=== PATIENT | male | born 1985 | race Caucasian/White ===

== ENCOUNTER 2017-03-07 13:49 | Emergency (ER) | payer OTHER ==
[~2017-03-07] VITALS: Ht 180.3 cm; Wt 83.3 kg
[~2017-03-07 13:49] MED LIST: FLUO10CA48 PO; INSDGIPEN SC; LURA80TA PO; NVLGIPEN SQ; PANT40TA PO
[2017-03-07 13:54] VITALS: Ht 180.3 cm; Wt 83.3 kg
[2017-03-07 15:14] LABS: BASO % 0.1 %; BASO ABS # 0.01 K/uL (0-0.2); COMPLETE YES; EOS % 2.9 %; HEMATOCRIT 40.8 % (42-52); IG% 0.2 %; LYMPH % 27.9 %; LYMPH ABS # 2.33 K/uL (1.2-3.4); MEAN CELL VOLUME 84.1 fL (80-100); MEAN CORPUSCULAR HEMOGLOBIN 29.7 pg (25-34); MEAN CORPUSCULAR HGB CONC 35.3 g/dl (32-36); MEAN PLATELET VOLUME 10.8 fL (7.4-10.4); MONO % 7.3 %; NEUT % 61.6 %; PLATELET COUNT 217 K/uL (130-400); RED BLOOD COUNT 4.85 M/uL (4.7-6.1); WHITE BLOOD COUNT 8.36 K/uL (4.8-10.8)
--- NOTE | 2017-03-07 15:16 | EMERGENCY ROOM VISIT NOTE ---
History Report prepared by Rakesh: Dread Talavera Under the Supervision of: Dr. Telma Christopher M.D. First contact with patient: 14:12 Chief Complaint: MENTAL HEALTH EVALUATION Stated Complaint: MENTAL HEALTH EVAL. History of Present Illness The patient is a 31 year old male who presents to the Emergency Room with complaints of severe anxiety occurring for the past few days. The patient was released from half-way 4 days ago to [facility]. For the past few days, the [facility] staff noted the patient to be having some strange behavior. The patient reports that he has been having anxiety about his current situation. His plan after being released from the half-way was to find a job and a permanent place to live. Today, the [facility] staff counted the patient's pills due to worsening symptoms. He admits to taking extra Klonopin. The patient was asked to leave from the [facility] and was referred to the Emergency Room. He has to do 30 days of rehab successfully before he can be allowed to come back to the [facility]. He currently denies any suicidal or homicidal ideation. The patient has a history of ADD, bipolar disorder, and anxiety. He has a history of cocaine and alcohol abuse but has not used either since July 2015. He also has a history of diabetes and reports that his blood sugar has been high but it may be due to eating an unhealthy diet. The patient denies fevers, chills, or any other complaints. Source of History: patient Onset: a few days ago Position: other (global) Symptom Intensity: severe Quality: other (anxiety) Associated Symptoms: No fevers, No chills Review of Systems See HPI for pertinent positives & negatives. A total of 10 systems reviewed and were otherwise negative. Past Medical & Surgical Medical Problems: (1) Acute respiratory failure with hypoxia (2) Anxiety (3) Bipolar disorder (4) Hyperglycemia due to type 2 diabetes mellitus (5) Major depressive disorder, recurrent severe without psychotic features (6) Multiple drug overdose (7) Pancreatitis Family History Cancer Diabetes mellitus Heart disease Social History Smoking Status: Current Every Day Smoker Alcohol Use: occasionally Marital Status: single Occupation Status: employed Current/Historical Medications Scheduled Aripiprazole (Aripiprazole), 10 MG PO HS Bupropion (Wellbutrin Sr), 100 MG PO BID Clonazepam (Klonopin), 1 MG PO BID Insulin Aspart (Novolog), 10 UNITS SC TIDM Insulin Glargine (Lantus Solostar), 25 UNITS SC QPM Methylphenidate (Ritalin), 20 MG PO BID Oxcarbazepine (Oxcarbazepine), 300 MG PO BID Pantoprazole (Protonix), 40 MG PO DAILY Trazodone Hcl (Trazodone), 100 MG PO HS Allergies Coded Allergies: Amoxicillin (Verified Allergy, Unknown, UNKNOWN, 03/07/17) Penicillins (Verified Allergy, Unknown, ., 03/07/17) Ondansetron (Verified Adverse Reaction, Intermediate, severe headache, ) Physical Exam Vital Signs Date Time Temp Pulse Resp B/P (MAP) Pulse Ox O2 Delivery O2 Flow Rate FiO2 03/07/17 18:37 98 15 133/84 98 Room Air 03/07/17 16:05 91 16 119/75 100 Room Air 03/07/17 13:54 37.0 106 20 120/71 97 Room Air Physical Exam Vital signs reviewed. General: Well-appearing, in no significant distress. HEENT: No scleral icterus, PERRLA, neck supple. Atraumatic. Cardiovascular: Regular rate and rhythm, no extra sounds. Pulmonary: Clear to auscultation bilaterally, normal work of breathing. Abdomen: Soft, nontender, nondistended, positive bowel sounds. Musculoskeletal: Atraumatic, no peripheral edema. Neurologic: Patient awake alert and oriented x 3 Psychiatric: Patient denies suicidal or homicidal ideation. Skin: Warm, dry, no rash Medical Decision & Procedures Laboratory Results 03/07/17 15:00 Red Blood Count 4.85, Mean Corpuscular Volume 84.1, Mean Corpuscular Hemoglobin 29.7, Mean Corpuscular Hemoglobin Concent 35.3, Mean Platelet Volume 10.8, Neutrophils (%) (Auto) 61.6, Lymphocytes (%) (Auto) 27.9, Monocytes (%) (Auto) 7.3, Eosinophils (%) (Auto) 2.9, Basophils (%) (Auto) 0.1, Neutrophils # (Auto) 5.15, Lymphocytes # (Auto) 2.33, Monocytes # (Auto) 0.61, Eosinophils # (Auto) 0.24, Basophils # (Auto) 0.01 03/07/17 15:00 Test 03/07/17 15:00 03/07/17 15:20 03/07/17 20:28 White Blood Count 8.36 K/uL (4.8-10.8) Red Blood Count 4.85 M/uL (4.7-6.1) Hemoglobin 14.4 g/dL (14.0-18.0) Hematocrit 40.8 % (42-52) Mean Corpuscular Volume 84.1 fL (80-100) Mean Corpuscular Hemoglobin 29.7 pg (25-34) Mean Corpuscular Hemoglobin Concent 35.3 g/dl (32-36) Platelet Count 217 K/uL (130-400) Mean Platelet Volume 10.8 fL (7.4-10.4) Neutrophils (%) (Auto) 61.6 % Lymphocytes (%) (Auto) 27.9 % Monocytes (%) (Auto) 7.3 % Eosinophils (%) (Auto) 2.9 % Basophils (%) (Auto) 0.1 % Neutrophils # (Auto) 5.15 K/uL (1.4-6.5) Lymphocytes # (Auto) 2.33 K/uL (1.2-3.4) Monocytes # (Auto) 0.61 K/uL (0.11-0.59) Eosinophils # (Auto) 0.24 K/uL (0-0.5) Basophils # (Auto) 0.01 K/uL (0-0.2) RDW Standard Deviation 42.5 fL (36.4-46.3) RDW Coefficient of Variation 13.9 % (11.5-14.5) Immature Granulocyte % (Auto) 0.2 % Immature Granulocyte # (Auto) 0.02 K/uL (0.00-0.02) Anion Gap 4.0 mmol/L (3-11) Est Creatinine Clear Calc Drug Dose 114.0 ml/min Estimated GFR () 116.3 Estimated GFR (Non- 100.4 BUN/Creatinine Ratio 7.1 (10-20) Calcium Level 9.5 mg/dl (8.5-10.1) Total Bilirubin 0.4 mg/dl (0.2-1) Direct Bilirubin 0.1 mg/dl (0-0.2) Aspartate Amino Transf (AST/SGOT) 25 U/L (15-37) Alanine Aminotransferase (ALT/SGPT) 50 U/L (12-78) Alkaline Phosphatase 65 U/L (45-117) Total Protein 7.3 gm/dl (6.4-8.2) Albumin 3.5 gm/dl (3.4-5.0) Thyroid Stimulating Hormone (TSH) 0.887 uIu/ml (0.300-4.500) Salicylates Level < 1.7 mg/dl (2.8-20) Acetaminophen Level < 2 ug/ml (10-30) Ethyl Alcohol mg/dL < 3.0 mg/dl (0-3) Urine Color YELLOW Urine Appearance CLEAR (CLEAR) Urine pH 6.5 (4.5-7.5) Urine Specific [place] 1.017 (1.000-1.030) Urine Protein NEG (NEG) Urine Glucose (UA) 1+ (NEG) Urine Ketones NEG (NEG) Urine Occult Blood NEG (NEG) Urine Nitrite NEG (NEG) Urine Bilirubin NEG (NEG) Urine Urobilinogen NEG (NEG) Urine Leukocyte Esterase TRACE (NEG) Urine WBC (Auto) 1-5 /hpf (0-5) Urine RBC (Auto) 0-4 /hpf (0-4) Urine Hyaline Casts (Auto) 0 /lpf (0-5) Urine Epithelial Cells (Auto) 5-10 /lpf (0-5) Urine Bacteria (Auto) NEG (NEG) Urine Opiates Screen NEG (NEG) Urine Methadone, Qualitative NEG (NEG) Urine Barbiturates NEG (NEG) Urine Phencyclidine (PCP) Level NEG (NEG) Ur Amphetamine/Methamphetamine NEG (NEG) MDMA (Ecstasy) Screen POS (NEG) Urine Benzodiazepines Screen NEG (NEG) Urine Cocaine Metabolite NEG (NEG) Urine Marijuana (THC) NEG (NEG) Bedside Glucose 125 mg/dl (70-99) Laboratory results per my review. Medications Administered Medications (Trade) Dose Ordered Sig/Raudel Route Start Time Stop Time Status Last Admin Dose Admin Methylphenidate HCl (Ritalin Tab) 20 mg NOW STAT PO 03/07/17 16:15 03/07/17 16:32 DC 03/07/17 16:15 20 MG Pantoprazole Sodium (Protonix Tab) 40 mg NOW STAT PO 03/07/17 16:15 03/07/17 16:32 DC 03/07/17 16:39 40 MG Insulin Aspart (novoLOG ASPART) 10 units NOW STAT SC 03/07/17 17:02 03/07/17 17:04 DC 03/07/17 17:33 10 UNITS ED Course 1412: Past medical records reviewed. The patient was evaluated in room A05. A complete history and physical examination was performed. 1615: Protonix Tab 40 mg PO, Ritalin Tab 20 mg PO 1702: Insulin Aspart 10 units SC 2030: Upon reevaluation, the patient is resting comfortably. I discussed laboratory and radiographic results with him. He verbalized agreement of the treatment plan. The patient will be transferred to the [facility] for further management and care. Medical Decision Medication Reconciliation: I attest that I have personally reviewed the patient' s current medication list. Blood Pressure Screening: Patient was found to have normal blood pressure on screening and does not require follow-up. Differential diagnosis: Etiologies such as mood disorder, infection, hypoglycemia, electrolyte abnormalities, cardiac sources, intracerebral event, toxicologic, neurologic, as well as others were entertained. This patient was evaluated and appeared to be in no significant distress. Patient was medically cleared and evaluated by case management. He was given his home dose of Ritalin, Protonix and insulin. He was accepted at [facility] for inpatient D&A rehabilitation. Secure transportation arrangements have been made. Patient seems happy with the plan and agrees. Impression Primary Impression: Substance abuse Scribe Attestation The scribe's documentation has been prepared under my direction and personally reviewed by me in its entirety. I confirm that the note above accurately reflects all work, treatment, procedures, and medical decision making performed by me. Departure Information Dispostion [facility] Acute Care Referrals Bharathi Allen D.O. (PCP) Patient Instructions My [facility]
[2017-03-07 15:31] LABS: BUN/CREATININE RATIO 7.1 (10-20); CALCIUM 9.5 mg/dl (8.5-10.1); CREATININE 0.99 mg/dl (0.60-1.40); POTASSIUM 4.3 mmol/L (3.5-5.1)
[2017-03-07] MEDS ORDERED: ARIP1TAB15 PO (15:36)
[2017-03-07] MEDS ORDERED: INSDGIPEN SC (15:36)
[2017-03-07] MEDS ORDERED: BUPR100T8 PO (15:36)
[2017-03-07] MEDS ORDERED: CLON1TAB3 PO (15:36)
[2017-03-07] MEDS ORDERED: TRL300 PO (15:36)
[2017-03-07] MEDS ORDERED: TRAZ100T29 PO (15:36)
[2017-03-07] MEDS ORDERED: RTL20 PO (15:36)
[2017-03-07] MEDS ORDERED: NVLG SC (15:37)
[2017-03-07 15:42] LABS: ACETAMINOPHEN < 2 ug/ml (10-30); THYROID STIMULATING HORMONE 0.887 uIu/ml (0.300-4.500)
[2017-03-07 15:47] LABS: URINE APPEARANCE CLEAR (CLEAR); URINE BILIRUBIN NEG (NEG); URINE COLOR YELLOW; URINE NITRITE NEG (NEG); URINE PH 6.5 (4.5-7.5); URINE SPECIFIC GRAVITY 1.017 (1.000-1.030); UROBILINOGEN NEG (NEG); ZZUR CULT IF INDIC CLEAN CATCH NO
[2017-03-07 15:51] LABS: MANUAL MICROSCOPIC REQUIRED? NO; REVIEW REQ? NO
[2017-03-07] MEDS ORDERED: PANTOprazole SOD 40 MG TAB PO STA (16:15)
[2017-03-07] MEDS ORDERED: METHYLPHENIDATE HCL 10 MG TAB PO STA (16:15)
[2017-03-07 16:22] LABS: BENZODIAZEPINE, URINE NEG (NEG); COCAINE,URINE NEG (NEG); PHENCYCLIDINE, URINE NEG (NEG)
[2017-03-07] MEDS ORDERED: INSULIN ASPART 100 UNITS/ML 3 ML PEN SC STA (17:02)
[2017-03-07 21:18] VITALS: BP 128/78; PULSE 89; TEMP 36.8; O2SAT 97
[2017-03-13 23:06] LABS: SYNTHETIC CANNABINOIDS QL URIN NEGATIVE (Negative)
== END 2017-03-07 21:08 ==
LOC: C.EDB 13:50 → C.EDA 21:08
DX: F55.8 Abuse of other non-psychoactive substances (principal); J96.01 Acute respiratory failure with hypoxia; F41.9 Anxiety disorder, unspecified; F31.9 Bipolar disorder, unspecified; R73.9 Hyperglycemia, unspecified; E11.9 Type 2 diabetes mellitus without complications; Z83.3 Family history of diabetes mellitus; Z82.49 Family history of ischemic heart disease and other diseases of the circulatory system; F17.200 Nicotine dependence, unspecified, uncomplicated; Z79.4 Long term (current) use of insulin